=== PATIENT | female | born 1960 | race Caucasian/White ===

== ENCOUNTER → 2019-07-18 | Outpatient (CLI) | payer BC | LOC: M.RAD 08:37 | DX: M85.88 Other specified disorders of bone density and structure, other site (principal); E83.52 Hypercalcemia; Z78.0 Asymptomatic menopausal state ==

== ENCOUNTER → 2021-10-28 | Outpatient (CLI) | payer BC | LOC: M.RAD 06:36 | PROVIDERS: ATTEND Specialist | DX: M85.88 Other specified disorders of bone density and structure, other site (principal); M81.0 Age-related osteoporosis without current pathological fracture ==